=== PATIENT | male | born 1980 | race Caucasian/White ===

== ENCOUNTER 2024-05-07 10:34 | Emergency (ER) | payer OTHER ==
[~2024-05-07] VITALS: Ht 182.9 cm; Wt 107.0 kg
[2024-05-07 11:23] VITALS: BP 126/82; TEMP 98.3
[2024-05-07] MEDS ORDERED: PRED50TA PO (11:42)
[2024-05-07] MEDS ORDERED: ALBU18HF2 INH (11:42)
[2024-05-07] MEDS ORDERED: predniSONE 20 MG TABLET ONE (11:48)
[2024-05-07] MEDS: predniSONE 50 MG TABLET PO ONE (11:50)
[2024-05-07] MEDS ORDERED: ALBUTEROL FS 2.5 MG/3 ML VIAL.NEB ONE (11:55)
[2024-05-07 12:00] VITALS: O2SAT 95
[2024-05-07] MEDS: ALBUTEROL FS 2.5 MG/3 ML VIAL.NEB NEB ONE (12:00)
[2024-05-07 12:10] VITALS: O2SAT 98
[2024-05-07 12:46] VITALS: O2SAT 98
== END 2024-05-07 12:51 | disposition home or self-care (01) ==
LOC: ER 10:39
DX: J45.901 Unspecified asthma with (acute) exacerbation (principal); R06.02 Shortness of breath; R05.9 Cough, unspecified
CPT/HCPCS: 99283; 94640; J7512